=== PATIENT | male | born 1970 | race Caucasian/White ===

== ENCOUNTER → 2016-07-23 | Outpatient (CLI) | payer OTHER ==
[2016-06-26 12:00] VITALS: BP 130/65
[~2016-07-23] MED LIST: CIPR500T94 PO; NAPR500T8 PO; OXYC-323 PO; PROM25TA10 PO; TAMS0.4C97 PO
--- NOTE | 2016-07-23 12:13 | RAD ---
Indication evaluate for renal calculi. Supine films of the abdomen were obtained. Note is made of a previous examination 04/18/2010. Note is made of a CT examination 06/26/2016. That examination demonstrated a 3 mm calculus in the mid left ureter. The abdominal gas pattern is normal. No definite ureteral calculus is seen. Findings may represent passage of a radiopaque calculus or the calculus may be radiolucent. IMPRESSION: No definite left ureteral calculus seen. See above discussion
== END | disposition home or self-care (01) ==
LOC: RAD 11:08
PROVIDERS: ATTEND Urology
DX: N20.0 Calculus of kidney (principal)
CPT/HCPCS: 74000